=== PATIENT | female | born 1975 | race Caucasian/White ===

== ENCOUNTER 2017-12-16 08:48 | Outpatient (CLI) | payer MEDICAID ==
[2017-12-16 09:40] LABS: ADD UMIC YES; UR ASCORBIC ACID NEGATIVE (NEGATIVE); UR BACTERIA FEW /HPF (NONE SEEN); UR BILIRUBIN (Dip) NEGATIVE (NEGATIVE); UR BLOOD (Dip) NEGATIVE (NEGATIVE); UR CLARITY CLEAR (CLEAR); UR COLOR YELLOW (YELLOW); UR GLUCOSE (Dip) NEGATIVE (NEGATIVE); UR KETONES (Dip) 1+ mg/dL (NEGATIVE); UR LEUKOCYTE ESTERASE (Dip) TRACE Leu/ul (NEGATIVE); UR NITRITE (Dip) NEGATIVE (NEGATIVE); UR RBC 1 /HPF (0-5); UR SPECIFIC GRAVITY (Dip) 1.012 (1.003-1.030); UR SQUAMOUS EPITHELIAL CELL FEW /HPF (FEW); UR TOTAL PROTEIN (Dip) NEGATIVE (NEGATIVE); UR UROBILINOGEN (Dip) NEGATIVE (NEGATIVE); UR WBC 3 /HPF (0-5)
[2017-12-16] MEDS: LACTATED RINGER'S 1,000 ML IV (09:43)
[2017-12-16 10:05] LABS: ADD MAN DIFF? NO
[2017-12-16 10:19] LABS: WHITE BLOOD COUNT 8.8 10^3/ul (4.8-10.8)
[2017-12-16 10:19] LABS: BASOPHILS % 0.3 % (0.0-2.0); EOSINOPHILS # 0.1 10^3/ul (0.0-0.5); EOSINOPHILS % 0.6 % (0.0-7.0); HEMATOCRIT 30.5 % (37.0-47.0); HEMOGLOBIN 10.7 g/dl (12.0-16.0); LYMPHOCYTES # 1.7 10^3/ul (0.8-2.9); LYMPHOCYTES % 19.5 % (15.0-51.0); MEAN CORPUSCULAR HEMOGLOBIN 30.4 pg (29.0-33.0); MEAN CORPUSCULAR HGB CONC 35.1 g/dl (32.0-37.0); MEAN CORPUSCULAR VOLUME 86.6 fl (82.0-101.0); MEAN PLATELET VOLUME 11.5 fl (7.4-10.4); MONOCYTE # 0.6 10^3/ul (0.3-0.9); MONOCYTES % 6.3 % (0.0-11.0); NEUTROPHIL # 6.4 10^3/ul (1.6-7.5); NEUTROPHILS % 72.6 % (39.0-77.0); PLATELET COUNT 203 10^3/UL (140-415); RED BLOOD COUNT 3.52 10^6/ul (4.20-5.40); RED CELL DISTRIBUTION WIDTH 14.1 % (11.5-14.5)
[2017-12-16 10:34] LABS: ALANINE AMINOTRANSFERASE 15 IU/L (13-69); ALBUMIN 3.3 g/dl (3.3-4.9); ALBUMIN/GLOBULIN RATIO 1.06; ALKALINE PHOSPHATASE 58 IU/L (42-121); ANION GAP 10 (8-16); ASPARTATE AMINO TRANSFERASE 15 IU/L (15-46); BILIRUBIN,INDIRECT 0.1 mg/dl (0-1.1); BILIRUBIN,TOTAL 0.1 mg/dl (0.2-1.3); BLOOD UREA NITROGEN 8 mg/dl (7-20); CALCIUM 8.9 mg/dl (8.4-10.2); CARBON DIOXIDE 20 mmol/L (21-31); CHLORIDE 109 mmol/L (97-110); CREATININE 0.46 mg/dl (0.44-1.00); GLUCOSE 88 mg/dl (70-220); POTASSIUM 3.8 mmol/L (3.5-5.1); SODIUM 135 mmol/L (135-144); TOTAL PROTEIN 6.4 g/dl (6.1-8.1)
== END 2017-12-16 13:06 | disposition home or self-care (01) ==
LOC: OBT 08:48 → L-D 08:48 → OBT 13:06
DX: O26.893 Other specified pregnancy related conditions, third trimester (principal); M79.1 Myalgia; O09.523 Supervision of elderly multigravida, third trimester; Z3A.28 28 weeks gestation of pregnancy
CPT/HCPCS: 36415; 76818; 80053; 81001; 85025; 87086; 96360; 96361

== ENCOUNTER 2018-01-19 10:35 | Outpatient (CLI) | payer MEDICAID ==
[2018-01-19] MEDS: LACTATED RINGER'S 1,000 ML IV (11:21)
[2018-01-19] MEDS: TERBUTALINE 1 MG/ML INJ SC (11:21)
[2018-01-19 11:44] LABS: ADD MAN DIFF? NO
[2018-01-19 11:58] LABS: WHITE BLOOD COUNT 9.4 10^3/ul (4.8-10.8)
[2018-01-19 11:58] LABS: BASOPHILS % 0.2 % (0.0-2.0); EOSINOPHILS % 0.4 % (0.0-7.0); HEMOGLOBIN 11.9 g/dl (12.0-16.0); LYMPHOCYTES # 1.7 10^3/ul (0.8-2.9); LYMPHOCYTES % 17.9 % (15.0-51.0); MEAN CORPUSCULAR HEMOGLOBIN 30.3 pg (29.0-33.0); MEAN CORPUSCULAR VOLUME 86.5 fl (82.0-101.0); MEAN PLATELET VOLUME 11.5 fl (7.4-10.4); MONOCYTE # 0.5 10^3/ul (0.3-0.9); MONOCYTES % 5.5 % (0.0-11.0); NEUTROPHIL # 7.1 10^3/ul (1.6-7.5); NEUTROPHILS % 75.4 % (39.0-77.0); PLATELET COUNT 205 10^3/UL (140-415); RED BLOOD COUNT 3.93 10^6/ul (4.20-5.40)
[2018-01-19 12:01] LABS: ADD UMIC YES; UR ASCORBIC ACID NEGATIVE (NEGATIVE); UR BACTERIA FEW /HPF (NONE SEEN); UR BILIRUBIN (Dip) NEGATIVE (NEGATIVE); UR BLOOD (Dip) 2+ mg/dL (NEGATIVE); UR CLARITY CLOUDY (CLEAR); UR COLOR YELLOW (YELLOW); UR GLUCOSE (Dip) NEGATIVE (NEGATIVE); UR KETONES (Dip) TRACE mg/dL (NEGATIVE); UR LEUKOCYTE ESTERASE (Dip) 3+ Leu/ul (NEGATIVE); UR MUCUS FEW /HPF (NONE SEEN); UR NITRITE (Dip) NEGATIVE (NEGATIVE); UR RBC > 182 /HPF (0-5); UR SPECIFIC GRAVITY (Dip) 1.021 (1.003-1.030); UR SQUAMOUS EPITHELIAL CELL FEW /HPF (FEW); UR TOTAL PROTEIN (Dip) 1+ mg/dl (NEGATIVE); UR UROBILINOGEN (Dip) NEGATIVE (NEGATIVE); UR WBC > 182 /HPF (0-5)
[2018-01-19] MEDS ORDERED: LACTATED RINGER'S 1,000 ML IV (13:00)
[2018-01-19] MEDS: CEFTRIAXONE 2 GM/50 ML (PMX) 50 ML IVPB (13:50)
== END 2018-01-19 15:00 | disposition home or self-care (01) ==
LOC: OBT 10:35 → L-D 10:35 → OBT 15:00
DX: O26.893 Other specified pregnancy related conditions, third trimester (principal); Z3A.33 33 weeks gestation of pregnancy; R30.0 Dysuria
CPT/HCPCS: 76815; 76818; 81001; 85025; 87086; 96360; 96361; 96366; 96372

== ENCOUNTER 2018-02-15 21:57 | Inpatient (IN) | payer MEDICAID ==
[2018-02-15] MEDS: LACTATED RINGER'S 1,000 ML IV (23:37)
[2018-02-16] MEDS ORDERED: TERBUTALINE 1 ML (00:48)
[2018-02-16 00:59] LABS: ADD MAN DIFF? NO
[2018-02-16 01:00] LABS: WHITE BLOOD COUNT 9.3 10^3/ul (4.8-10.8)
[2018-02-16 01:00] LABS: BASOPHILS % 0.3 % (0.0-2.0); EOSINOPHILS # 0.1 10^3/ul (0.0-0.5); EOSINOPHILS % 0.5 % (0.0-7.0); HEMATOCRIT 31.5 % (37.0-47.0); HEMOGLOBIN 10.9 g/dl (12.0-16.0); LYMPHOCYTES % 21.1 % (15.0-51.0); MEAN CORPUSCULAR HEMOGLOBIN 30.5 pg (29.0-33.0); MEAN CORPUSCULAR HGB CONC 34.6 g/dl (32.0-37.0); MEAN CORPUSCULAR VOLUME 88.2 fl (82.0-101.0); MEAN PLATELET VOLUME 11.9 fl (7.4-10.4); MONOCYTE # 0.7 10^3/ul (0.3-0.9); NEUTROPHIL # 6.5 10^3/ul (1.6-7.5); NEUTROPHILS % 70.3 % (39.0-77.0); PLATELET COUNT 172 10^3/UL (140-415); RED BLOOD COUNT 3.57 10^6/ul (4.20-5.40)
[2018-02-16] MEDS ORDERED: BUTORPHANOL 2 MG INJ IV (01:00)
[2018-02-16] MEDS ORDERED: MISOPROSTOL 200 MCG TAB PR ×2 (01:00→05:00)
[2018-02-16] MEDS ORDERED: METHYLERGONOVINE 0.2 MG INJ IM ×2 (01:00→05:00)
[2018-02-16] MEDS ORDERED: CARBOPROST 250 MCG INJ IM ×2 (01:00→05:00)
[2018-02-16] MEDS ORDERED: OXYTOCIN 30 UNITS/LR 500 ML IV ×3 (01:00→05:00)
[2018-02-16 01:05] LABS: INR 1.03; PARTIAL THROMBOPLASTIN TIME 28.3 Sec (25.0-35.0); PROTIME 13.6 Sec (11.9-14.9); PT RATIO 1.1
[2018-02-16] MEDS: TERBUTALINE 1 MG/ML INJ SC (01:05)
[2018-02-16] MEDS: LACTATED RINGER'S 1,000 ML IV ×5 (02:54→22:29)
[2018-02-16] MEDS ORDERED: morphine SULFATE/PF (10 MG/10 ML) INJ (03:29)
[2018-02-16] MEDS ORDERED: OXYTOCIN 10 UNIT INJ ×2 (03:29→04:29)
[2018-02-16] MEDS ORDERED: OXYTOCIN 30 UNITS/LR 0 ML IV (03:29)
[2018-02-16] MEDS ORDERED: EPHEDrine SULFATE 50 MG/5 ML SYG (03:29)
[2018-02-16] MEDS ORDERED: ONDANSETRON 4 MG INJ (03:29)
[2018-02-16] MEDS ORDERED: METOCLOPRAMIDE 10 MG INJ (03:29)
[2018-02-16] MEDS ORDERED: BUPIVACAINE 0.75%/DEXT (SPINAL) 2 ML INJ (03:30)
[2018-02-16 03:37] LABS: HEPATITIS B SURFACE ANTIGEN NEGATIVE (NEGATIVE)
[2018-02-16] MEDS: CEFAZOLIN 2 GM/50 ML (PMX) 50 ML IVPB ×3 (03:50→22:28)
[2018-02-16] MEDS ORDERED: OXYCODONE/ACETAMINOPHEN (5/325) TAB PO ×2 (05:00)
[2018-02-16] MEDS: morphine SULFATE/PF (10 MG/10 ML) INJ SPINAL (05:27)
[2018-02-16] MEDS ORDERED: ONDANSETRON 4 MG INJ IV (05:30)
[2018-02-16] MEDS ORDERED: DIPHENHYDRAMINE 50 MG INJ IV (05:30)
[2018-02-16] MEDS ORDERED: KETOROLAC 30 MG INJ IV (05:30)
[2018-02-16] MEDS ORDERED: NALOXONE (0.4 MG/ML) INJ IV (05:30)
[2018-02-16] MEDS ORDERED: EPHEDrine SULFATE 50 MG/5 ML SYG IV (05:30)
[2018-02-16] MEDS ORDERED: morphine 2 MG INJ IV ×2 (05:30)
[2018-02-16] MEDS: OXYTOCIN 30 UNITS/LR 500 ML IV ×2 (06:25→11:02)
[2018-02-16] MEDS ORDERED: MAGNESIUM HYDROXIDE 30ML CUP PO (11:00)
[2018-02-16] MEDS: LANOLIN 7 GM TUBE TOP (11:02)
[2018-02-16] MEDS: CLINDAMYCIN 300 MG CAP PO ×2 (12:38→17:51)
[2018-02-16 22:20] LABS: RAPID PLASMA REAGIN NONREACTIVE (NR)
[2018-02-17] MEDS: CLINDAMYCIN 300 MG CAP PO ×4 (00:30→17:42)
[2018-02-17] MEDS: LACTATED RINGER'S 1,000 ML IV (04:59)
[2018-02-17] MEDS: IBUPROFEN 800 MG TAB PO ×3 (05:23→21:16)
[2018-02-17] MEDS: CEFAZOLIN 2 GM/50 ML (PMX) 50 ML IVPB (05:24)
[2018-02-17] MEDS: SENNA TAB PO (09:29)
[2018-02-17 11:23] LABS: ADD MAN DIFF? NO
[2018-02-17 11:27] LABS: BASOPHILS % 0.3 % (0.0-2.0); EOSINOPHILS % 0.3 % (0.0-7.0); HEMATOCRIT 31.1 % (37.0-47.0); HEMOGLOBIN 10.6 g/dl (12.0-16.0); LYMPHOCYTES # 1.7 10^3/ul (0.8-2.9); LYMPHOCYTES % 14.2 % (15.0-51.0); MEAN CORPUSCULAR HEMOGLOBIN 29.9 pg (29.0-33.0); MEAN CORPUSCULAR HGB CONC 34.1 g/dl (32.0-37.0); MEAN CORPUSCULAR VOLUME 87.9 fl (82.0-101.0); MEAN PLATELET VOLUME 11.7 fl (7.4-10.4); MONOCYTE # 0.8 10^3/ul (0.3-0.9); MONOCYTES % 6.9 % (0.0-11.0); NEUTROPHIL # 9.3 10^3/ul (1.6-7.5); NEUTROPHILS % 77.7 % (39.0-77.0); PLATELET COUNT 166 10^3/UL (140-415); RED BLOOD COUNT 3.54 10^6/ul (4.20-5.40); RED CELL DISTRIBUTION WIDTH 14.4 % (11.5-14.5)
[2018-02-17 11:27] LABS: WHITE BLOOD COUNT 11.9 10^3/ul (4.8-10.8)
[2018-02-17] MEDS: BISACODYL 10 MG SUPP PR (11:42)
[2018-02-18] MEDS: CLINDAMYCIN 300 MG CAP PO ×5 (00:44→23:51)
[2018-02-18] MEDS: IBUPROFEN 800 MG TAB PO ×3 (06:37→21:46)
[2018-02-19] MEDS: IBUPROFEN 800 MG TAB PO ×2 (05:35→15:22)
[2018-02-19] MEDS: CLINDAMYCIN 300 MG CAP PO ×2 (05:35→12:55)
[2018-02-19] MEDS: DIPHTH/TET/ACEL PERTUSS (ADULT) 0.5 ML VIAL IM* (11:56)
== END 2018-02-19 17:05 | disposition home or self-care (01) | DRG 766 ==
LOC: OBT 21:57 → L-D 21:58 → PP1 02-16 08:30
PROVIDERS: Obstetrics & Gynecology
PROC: 10D00Z1 Extraction of Products of Conception, Low, Open Approach (ICD-10-PCS; principal; 2018-02-16)
DX: O60.14X0 Preterm labor third trimester with preterm delivery third trimester, not applicable or unspecified (principal); O34.211 Maternal care for low transverse scar from previous cesarean delivery; Z3A.37 37 weeks gestation of pregnancy; Z37.0 Single live birth
CPT/HCPCS: 36415; 71046; 76818; 85025; 85460; 85610; 85730; 86592; 86850; 86900; 86901; 87340; 94760; 96360; 96372; 99464

== ENCOUNTER 2019-07-07 17:09 | Emergency (ER) | payer MEDICAID ==
[2019-07-07] MEDS: LORAZEPAM 0.5 MG TAB PO (17:35)
[2019-07-07] MEDS: KETOROLAC 15 MG INJ IV (17:35)
[2019-07-07] MEDS: SOD CHLORIDE 0.9% 1,000 ML IV (17:35)
[2019-07-07] MEDS: ONDANSETRON 4 MG INJ IV (17:35)
[2019-07-07 17:39] LABS: ADD MAN DIFF? NO
[2019-07-07 17:45] LABS: BASOPHILS % 0.4 % (0.0-2.0); EOSINOPHILS # 0.1 10^3/ul (0.0-0.5); HEMATOCRIT 37.7 % (37.0-47.0); HEMOGLOBIN 12.9 g/dl (12.0-16.0); LYMPHOCYTES # 2.9 10^3/ul (0.8-2.9); LYMPHOCYTES % 36.3 % (15.0-51.0); MEAN CORPUSCULAR HEMOGLOBIN 29.1 pg (29.0-33.0); MEAN CORPUSCULAR HGB CONC 34.2 g/dl (32.0-37.0); MEAN CORPUSCULAR VOLUME 85.1 fl (82.0-101.0); MEAN PLATELET VOLUME 11.4 fl (7.4-10.4); MONOCYTE # 0.6 10^3/ul (0.3-0.9); MONOCYTES % 7.8 % (0.0-11.0); NEUTROPHIL # 4.4 10^3/ul (1.6-7.5); NEUTROPHILS % 54.1 % (39.0-77.0); PLATELET COUNT 232 10^3/UL (140-415); RED BLOOD COUNT 4.43 10^6/ul (4.20-5.40); RED CELL DISTRIBUTION WIDTH 13.5 % (11.5-14.5)
[2019-07-07 17:45] LABS: WHITE BLOOD COUNT 8.1 10^3/ul (4.8-10.8)
[2019-07-07 18:03] LABS: ALANINE AMINOTRANSFERASE 18 IU/L (13-69); ALBUMIN 4.2 g/dl (3.3-4.9); ALBUMIN/GLOBULIN RATIO 1.27; ALKALINE PHOSPHATASE 50 IU/L (42-121); ANION GAP 11 (5-13); ASPARTATE AMINO TRANSFERASE 22 IU/L (15-46); BILIRUBIN,INDIRECT 0.3 mg/dl (0-1.1); BILIRUBIN,TOTAL 0.3 mg/dl (0.2-1.3); BLOOD UREA NITROGEN 11 mg/dl (7-20); CALCIUM 9.2 mg/dl (8.4-10.2); CARBON DIOXIDE 21 mmol/L (21-31); CHLORIDE 107 mmol/L (97-110); CREATININE 0.77 mg/dl (0.44-1.00); Estimated GFR > 60 mL/min (>60); GLUCOSE 104 mg/dl (70-220); LIPASE 142 U/L (23-300); POTASSIUM 3.7 mmol/L (3.5-5.1); SODIUM 139 mmol/L (135-144); TOTAL PROTEIN 7.5 g/dl (6.1-8.1)
[2019-07-07 18:15] LABS: TROPONIN-I < 0.012 ng/ml (0.000-0.120)
[2019-07-07 19:38] LABS: ADD UMIC YES; UR ASCORBIC ACID NEGATIVE (NEGATIVE); UR BACTERIA FEW /HPF (NONE SEEN); UR BILIRUBIN (Dip) NEGATIVE (NEGATIVE); UR BLOOD (Dip) 2+ mg/dL (NEGATIVE); UR CLARITY SLIGHTLY CLOUDY (CLEAR); UR COLOR STRAW (YELLOW); UR GLUCOSE (Dip) NEGATIVE (NEGATIVE); UR KETONES (Dip) NEGATIVE (NEGATIVE); UR LEUKOCYTE ESTERASE (Dip) TRACE Leu/ul (NEGATIVE); UR NITRITE (Dip) NEGATIVE (NEGATIVE); UR RBC 8 /HPF (0-5); UR SPECIFIC GRAVITY (Dip) 1.004 (1.003-1.030); UR SQUAMOUS EPITHELIAL CELL FEW /HPF (FEW); UR TOTAL PROTEIN (Dip) NEGATIVE (NEGATIVE); UR UROBILINOGEN (Dip) NEGATIVE (NEGATIVE); UR WBC 6 /HPF (0-5)
[2019-07-07] MEDS: CEPHALEXIN 500 MG CAP PO (19:57)
== END 2019-07-07 20:10 | disposition home or self-care (01) ==
LOC: E/R 17:09
DX: F41.9 Anxiety disorder, unspecified (principal); F43.0 Acute stress reaction; F32.0 Major depressive disorder, single episode, mild; N39.0 Urinary tract infection, site not specified; R10.9 Unspecified abdominal pain
CPT/HCPCS: 36415; 71045; 80053; 81001; 83690; 84484; 85025; 93005; 96361; 96374; 96375; 99285-25